=== PATIENT | female | born 2000 | race Caucasian/White ===

== ENCOUNTER 2018-10-07 17:30 | Emergency (ER) | payer SELFPAY ==
[~2018-10-07] VITALS: Ht 162.6 cm; Wt 60.0 kg
--- NOTE | 2018-10-07 17:50 | NUR ---
PT BIBA; REPORT TAKEN LIFE CLAIMS EXAMINER BY EMS. PT BROUGHT FOR SYNCOPAL EPISODE 1 HR AFTER SMOKING WEED. DENIES HEAD INJURY. FSBS LIFE CLAIMS EXAMINER PER EMS 88. ALL MONITORS IN PLACE. PT A&O, RESPS EVEN AND UNLABORED. NEURO INTACT. AWAITING MD AND ORDERS AT THIS TIME.
[2018-10-07 19:00] LABS: MEAN CORPUSCULAR HEMOGLOBIN 28.3 pg (27.0-34.8); MEAN CORPUSCULAR HGB CONC 33.9 g/dL (32.4-35.8); MEAN CORPUSCULAR VOLUME 83.4 fL (80-100); MEAN PLATELET VOLUME 10.4 fL (7.4-10.4); PLATELET COUNT 284 x10^3/uL (130-400); RED BLOOD COUNT 5.54 x10^6/uL (3.82-5.3); RED CELL DISTRIBUTION WIDTH 14.2 % (9.6-15.2)
--- NOTE | 2018-10-07 19:01 | NUR ---
pt resting on gurney, conversing with mother. pt is a&o, resps even and unlabored. nsr on vascular nurse. awaiting labs and dispo at this time.
[2018-10-07 19:04] LABS: ANION GAP 7 mmol/L (5-15); CALCIUM 8.2 mg/dL (8.5-10.1); CHLORIDE 110 mmol/L (98-107)
[2018-10-07 19:07] LABS: ALANINE AMINOTRANSFERASE 17 U/L (12-78); ALKALINE PHOSPHATASE 83 U/L (45-117); BILIRUBIN,TOTAL 0.2 mg/dL (0.2-1.0); CREATININE 0.72 mg/dL (0.55-1.02)
--- NOTE | 2018-10-07 19:10 | NUR ---
report given to day Jarrell.
--- NOTE | 2018-10-07 19:17 | NUR ---
Break RN: Pt to restroom for UA, pt hesitant, states '"I dont want to go" Pt educated on reasoning for ua, and aware she has right to refuse but encouraged to attempt for UA
[2018-10-07 19:20] LABS: MD YES
[2018-10-07 19:24] LABS: <PLATELET ESTIMATE> ADEQUATE; <PLT MORPHOLOGY> NORMAL PLT MORPH; <RBC MORPHOLOGY> NORMAL; BAND#(MANUAL) 1.66 x10^3/uL; BANDS%(MANUAL) 9 % (0-7); LYMPH#(MANUAL) 2.21 x10^3/uL (1-6.1); LYMPHS% (MANUAL) 12 % (22-44); MONOS#(MANUAL) 0.37 x10^3/uL (0.3-2.7); MONOS% (MANUAL) 2 % (2-9); SEG#(MANUAL) 14.17 x10^3/uL (1.8-8); SEGS% (MANUAL) 77 % (42-75)
--- NOTE | 2018-10-07 19:28 | NUR ---
Pt ambulated back to room from restroom with steady gait, denies dizziness.
[2018-10-07 19:36] LABS: CULTURE INDICATED? YES; MICROSCOPIC INDICATED
--- NOTE | 2018-10-07 19:55 | NUR ---
report taken from day Jarrell. all results back, chart up for recheck. awaiting MD and dispo at this time.
[2018-10-07 20:39] VITALS: BP 105/66
--- NOTE | 2018-10-07 20:40 | NUR ---
PT GIVEN DC INSTRUCTIONS. PT A&O, NEURO INTACT, RESPS EVEN AND UNLABORED. PIV DC'D WITH TIP INTACT. PT AMB TO DC DESK WITH STEADY GAIT, ACCOMPANIED BY MOTHER. AUDIE AT DC.
== END 2018-10-07 21:02 | disposition home or self-care (01) ==
LOC: ED 20:46
DX: R55 Syncope and collapse (principal); J45.909 Unspecified asthma, uncomplicated
CPT/HCPCS: 36415; 80053; 81001; 84703; 85025; 87086; 93005; 99284